=== PATIENT | male | born 1970 | race Two or more races ===

== ENCOUNTER 2017-11-10 09:56 | Emergency (ER) | payer OTHER ==
[~2017-11-10] VITALS: Ht 177.8 cm; Wt 78.9 kg
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
--- NOTE | 2017-11-10 10:05 | NUR ---
NEW IV STARTED ON LAC, 18G. BLOOD DRAWN AND SENT TO LAB.
--- NOTE | 2017-11-10 10:10 | NUR ---
PATIEN TO CT VIA STRETCHER.
[2017-11-10 10:14] LABS: HEMOGLOBIN 9.5 g/dL (13.5-17.5); LYMPHOCYTES # (AUTO) 0.2 /CMM (0.8-4.8); MEAN CORPUSCULAR VOLUME 88 fL (80-96); MONOCYTES # (AUTO) 0.2 /CMM (0.1-1.30)
--- NOTE | 2017-11-10 10:18 | NUR ---
PATIENT RETURNED FROM CT IN STABLE CONDITION.
[2017-11-10 10:25] LABS: CREATININE 1.2 mg/dL (0.6-1.3); POTASSIUM 3.6 mmol/L (3.5-5.1)
[2017-11-10] MEDS ORDERED: IV NS 0.9% 250 ML IV ONE (10:25)
[2017-11-10] MEDS ORDERED: CT SWABBABLE VALVE TRANS SET 1 EA INFUS.SET MC ONE (10:25)
[2017-11-10] MEDS ORDERED: IOHEXOL-350 100 ML VIAL IV ONE (10:25)
[2017-11-10 10:26] LABS: BASOPHILS % (AUTO) 0.2 % (0.0-2.0); EOSINOPHILS % (AUTO) 0.8 % (0.0-6.0); HEMATOCRIT 29 % (39-51); LYMPHOCYTES % (AUTO) 15.3 % (20.0-44.0); MEAN CORPUSCULAR HEMOGLOBIN 29 PG (26.0-33.0); MEAN CORPUSCULAR HGB CONC 33 g/dl (31.0-36.0); MONOCYTES % (AUTO) 21.1 % (2.0-12.0); NEUTROPHILS # (AUTO) 0.7 /CMM (1.8-8.9); NEUTROPHILS % (AUTO) 62.6 % (43.0-81.0); PLATELET COUNT (AUTO) 165 /CMM (150-450); RDW COEFFICIENT OF VARIATION 14.6 (11.5-15.0); RED BLOOD CELL COUNT(AUTO) 3.29 MIL/uL (4.5-6.0)
[2017-11-10 10:30] LABS: WHITE BLOOD COUNT (AUTO) 1.1 K/uL (4.3-11.0)
[2017-11-10 10:34] LABS: TROPONIN I 2.111 ng/mL (0.00-0.056)
[2017-11-10 10:35] LABS: INR 1.03 (0.85-1.15)
[2017-11-10] MEDS ORDERED: LIDOCAINE HCL/PF 1% 30 ML SDV ONE (11:03)
--- NOTE | 2017-11-10 11:20 | NUR ---
TPA STARTED PER MD ORDERS
--- NOTE | 2017-11-10 11:24 | NUR ---
[facility] CALLED, SPOKE WITH RAMONA SCHOFIELD, TPA IS ORDERED.
[2017-11-10] MEDS ORDERED: ALTEPLASE 100 MG/VIAL VIAL IV ONE ×2 (11:30)
[2017-11-10 12:12] LABS: EOSINOPHILS % (MANUAL) 1 % (0-4); LYMPHOCYTES % (MANUAL) 22 % (16-48); MONOCYTES % (MANUAL) 20 % (0-11.0); NEUTROPHILS % (MANUAL) 55 (42-76)
[2017-11-10 12:13] LABS: BAND % (MANUAL) 2 % (0.0-5.0)
[2017-11-10 12:15] VITALS: BP 106/72
--- NOTE | 2017-11-10 12:15 | NUR ---
PATIENT TRANSPORTED TO [facility] VIA [facility]. REPORT GIVEN TO ICU AT [phone]. REPORT ALSO GIVEN TO CCT RN, RAMONA. PATIENT STABLE, LEFT VIA AMBULANCE.
== END 2017-11-10 12:15 | disposition short-term general hospital (02) ==
LOC: ER 09:58
DX: I63.9 Cerebral infarction, unspecified (principal); R47.01 Aphasia; G93.40 Encephalopathy, unspecified; D72.819 Decreased white blood cell count, unspecified; D64.9 Anemia, unspecified; R79.89 Other specified abnormal findings of blood chemistry
CPT/HCPCS: 36415; 37195; 70450; 70496; 70498; 71045; 80048; 80061; 82962; 84484; 85025; 85730; 93005; 99291; A4606; G0480; J2997; J7050 ×2; Q9967; J3490; Z7610